=== PATIENT | female | born 2000 | race Hispanic/Latino ===

== ENCOUNTER 2022-02-08 19:03 | Inpatient (IN) | payer OTHER, SELFPAY ==
[2022-02-08] MEDS ORDERED: MAGNES/ALUMIN/SIMET 30ML UCUP ONE (20:10)
[2022-02-08] MEDS ORDERED: MORPHINE 4 MG/ML SYR ONE (20:10)
[2022-02-08] MEDS ORDERED: FAMOTIDINE 20 MG/2 ML VIAL IV ONE (20:11)
[2022-02-08] MEDS ORDERED: NA CHLORIDE 0.9% 1,000 ML ONE (20:11)
[2022-02-08] MEDS ORDERED: LIDOCAINE VISCOUS 2% SOLN 15 ML UDC ONE (20:11)
[2022-02-08] MEDS ORDERED: ONDANSETRON 4 MG/2 ML VIAL ONE (20:11)
--- NOTE | 2022-02-08 20:26 | RAD REPORT ---
EXAM DESCRIPTION: US - Abdomen Exam Limited - 02/08/2022 8:09 pm CLINICAL HISTORY: ABD PAIN COMPARISON: <Comparisons> FINDINGS: Cholelithiasis is present. There is a stone impacted at the gallbladder neck. The common b ile duct measures 2 millimeters. The gallbladder wall is not thickened. No pericholecystic inflammato ry changes are identified. A positive sonographic Cantrell sign is present. IMPRESSION: Cholelithiasis with stone impacted at the gallbladder neck. A positive sonographic Ki y's sign was elicited. Findings are concerning for early or mild acute cholecystitis.
[2022-02-08 20:43] LABS: Absolute Lymphocytes (CBC) 2.2 K/uL (0.7-4.9); Hematocrit 36.4 % (36.0-45.0); MPV 8.4 fL (7.6-11.3); RBC Red Blood Cell Count 4.31 M/uL (3.86-4.86)
[2022-02-08 20:58] LABS: Albumin 3.7 g/dL (3.4-5.0); Bilirubin Total 0.3 mg/dL (0.2-1.0); Potassium 3.6 mmol/L (3.5-5.1); Protein, Total 8.2 g/dL (6.4-8.2)
[2022-02-08 21:00] LABS: Urine Blood 2+ (Negative); Urine Glucose Negative (Negative); Urine Protein 1+ (Negative); Urine Specific Gravity 1.025 (1.005-1.030)
[2022-02-08] MEDS ORDERED: PIPERACIL/TAZO 3.375 GM VIAL IV ONE (21:11)
[2022-02-08] MEDS ORDERED: NA CHLORIDE 0.9% 100 ML IV ONE (21:11)
[2022-02-08 21:15] LABS: Urine Bacteria 20-50 /HPF (<20); Urine RBC <5 /HPF (NONE SEEN)
[2022-02-08 21:58] LABS: Protime INR 1.07
[2022-02-08 22:10] LABS: Urine Specific Gravity/Preg 1.025 (1.005-1.030)
--- NOTE | 2022-02-08 22:11 | RAD REPORT ---
EXAM DESCRIPTION: CTAbdomen Pelvis W Contrast - 02/08/2022 10:04 pm CLINICAL HISTORY: abdominal pain COMPARISON: Abdomen Exam Limited dated 02/08/2022 TECHNIQUE: CT of the abdomen and pelvis was performed. All CT scans are performed using dose optimization technique as appropriate and may include automated exposure control or mA/KV adjustment according to patient size. FINDINGS: Lower chest: No acute abnormality. Liver: No acute abnormality or suspicious lesions. Biliary: Cholelithiasis. No pericholecystic inflammatory changes. No biliary ductal dilatation. Stomach: No significant focal abnormality. Duodenum: No significant focal abnormality. Pancreas: No significant abnormality. Spleen: No significant abnormality. Adrenal: No suspicious lesions. Kidney/ureter: No hydronephrosis. No renal calculi. Retroperitoneum: No retroperitoneal adenopathy. Vascular: No aneurysm. Bowel: No significant focal abnormality. Normal appendix. Peritoneum: No ascites or free air. Bladder: Grossly unremarkable. Reproductive: No adnexal masses. Bones: No acute fracture. Other: n/a IMPRESSION: Cholelithiasis but no CT evidence of acute cholecystitis. Normal appendix.
--- NOTE | 2022-02-08 22:30 | ER ---
Nurse's Notes [facility] Name: Leighann Wooten Age: 21 yrs Sex: Female : 2000 Arrival Date: 02/08/2022 Time: 19:06 Bed 8 Private MD: Diagnosis: Other cholelithiasis without obstruction;Severe sepsis without septic shock;Upper abdominal pain, unspecified Presentation: 02/08 19:07 Chief complaint: EMS states: Toned out for sudden RUQ abdominal pain, radiates to jl7 epigastric area, last meal 3 hours ago, LMP 4 days ago. Coronavirus screen: At this time, the client does not indicate any symptoms associated with coronavirus-19. Ebola Screen: No symptoms or risks identified at this time. Initial Sepsis Screen: Does the patient meet any 2 criteria? No. Patient's initial sepsis screen is negative. Does the patient have a suspected source of infection? No. Patient's initial sepsis screen is negative. Risk Assessment: Do you want to hurt yourself or someone else? Patient reports no desire to harm self or others. Onset of symptoms was February 08, 2022. Care prior to arrival: Medication(s) given: 200 mcg Fentanyl IVP IV initiated. 20 GA, in the left antecubital area. 19:07 Method Of Arrival: Ambulatory [facility] 19:07 Acuity: DANISH 3 jl7 Triage Assessment: 19:11 General: Appears in no apparent distress. uncomfortable, Behavior is calm, cooperative, jl7 appropriate for age. Pain: Complains of pain in right upper quadrant Pain radiates to epigastric area. [employer]ANE RE[employer]: 19:11 LMP 02/04/2022 jl7 Historical: - Allergies: 19:11 No Known Allergies; jl7 - Home Meds: 19:11 None [Active]; jl7 - PMHx: 19:11 None; jl7 - PSHx: 19:11 None; jl7 - Immunization history:: Adult Immunizations unknown. - Social history:: Smoking status: Patient denies any tobacco usage or history of. Screenin/15 00:40 Abuse screen: Denies threats or abuse. Nutritional screening: No deficits noted. ll3 Tuberculosis screening: No symptoms or risk factors identified. Fall Risk No fall in past 12 months (0 pts). No secondary diagnosis (0 pts). IV access (20 points). Ambulatory Aid- None/Bed Rest/Nurse Assist (0 pts). Gait- Normal/Bed Rest/Wheelchair (0 pts) Mental Status- Oriented to own ability (0 pts). Assessment: 02/08 19:10 General: See triage assessment. ll3 21:14 Reassessment: Patient and/or family updated on plan of care and expected duration. Pain ll3 level reassessed. Patient is alert, oriented x 3, equal unlabored respirations, skin warm/dry/pink. States pain meds helped and pain is improved 2/10. 23:34 Reassessment: Patient and/or family updated on plan of care and expected duration. Pain ll3 level reassessed. Patient is alert, oriented x 3, equal unlabored respirations, skin warm/dry/pink. Patient states symptoms have improved. 02/09 00:41 Reassessment: No changes from previously documented assessment. Patient and/or family ll3 updated on plan of care and expected duration. Pain level reassessed. Patient is alert, oriented x 3, equal unlabored respirations, skin warm/dry/pink. Vital Signs: 02/08 19:07 BP 130 / 104; Pulse 113; Resp 15; Temp 98.6; Pulse Ox 100% ; Pain 10/10; jl7 20:46 BP 116 / 75; Pulse 102; Resp 18; Pulse Ox 99% on R/A; ll3 23:34 BP 101 / 58; Pulse 69; Resp 20; Pulse Ox 97% on R/A; Weight 99.79 kg (R); ll3 02/09 00:41 BP 105 / 80; Pulse 72; Resp 18; Pulse Ox 100% on R/A; ll3 ED Course: 02/08 19:06 Patient arrived in ED. ms3 19:06 Maintain EMS IV. Dressing intact. Good blood return noted. Site clean \T\ dry. Gauge \T\ ll 3 site: 20. 19:09 Triage completed. jl7 19:11 Arm band placed on right wrist. jl7 19:21 Florentin Harkins DO is Attending Physician. ms3 20:11 Abdomen Limited US In Process Unspecified. EDMS 21:12 Ralph Oleary, JOSHUA is Primary Nurse. ll3 22:07 CT Abd/Pelvis - IV Contrast Only In Process Unspecified. EDMS 22:27 Don Solorio MD is Hospitalizing Provider. ms3 02/09 00:40 Patient has correct armband on for positive identification. Bed in low position. Call ll3 light in reach. Side rails up X 1. 00:40 No provider procedures requiring assistance completed. Patient admitted, IV remains in ll3 place. intact, No redness/swelling at site. Administered Medications: 02/08 20:30 Drug: Zofran (Ondansetron) 4 mg Route: IVP; Site: left antecubital; ll3 21:37 Follow up: Response: No adverse reaction; Marked relief of symptoms ll3 20:30 Drug: Famotidine 20 mg Route: IVP; Site: left antecubital; ll3 21:38 Follow up: Response: No adverse reaction ll3 20:32 Drug: morphine 4 mg Route: IVP; Site: left antecubital; ll3 21:38 Follow up: Response: No adverse reaction; Marked relief of symptoms ll3 20:33 Drug: NS 0.9% 1000 ml Route: IV; Rate: 1 bolus; Site: left antecubital; ll3 22:13 Follow up: Response: No adverse reaction; IV Status: Completed infusion; IV Intake: ll3 1000ml 20:33 Drug: GI Cocktail without - (Maalox Suspension 30 ml, Lidocaine Liquid 2 % 15 ll3 ml) Route: PO; 21:38 Follow up: Response: No adverse reaction; Marked relief of symptoms ll3 22:13 Drug: Zosyn (piperacillin-tazobactam) 3.375 grams Route: IVPB; Infused Over: 60 mins; ll3 Site: left antecubital; 23:38 Follow up: Response: No adverse reaction; IV Status: Completed infusion; IV Intake: ll3 100ml Medication: 02/09 00:41 VIS not applicable for this client. ll3 Intake: 02/08 22:13 IV: 1000ml; Total: 1000ml. ll3 23:38 IV: 100ml; Total: 1100ml. ll3 Outcome: 22:29 Decision to Hospitalize by Provider. ms3 02/09 00:40 Admitted to ER Hold. Please see [facility] for further documentation. ll3 Condition: stable Instructed on the need for admit, Demonstrated understanding of instructions. 16:40 Admitted to Med/surg accompanied by tech, via wheelchair, with chart, Report called to swathi Saldaña RN 16:56 Patient left the ED. swathi Signatures: Dispatcher [employer] Majo Pompa RN RN aa5 Ross Cosby RN RN jl7 Florentin Harkins, DO ms3 Ralph Oleary RN RN ll3
--- NOTE | 2022-02-08 22:30 | EDPHYS ---
Physician Documentation [facility] Name: Leighann Wooten Age: 21 yrs Sex: Female : 2000 Arrival Date: 02/08/2022 Time: 19:06 Bed 8 Private MD: ED Physician Florentin Harkins HPI: 02/08 20:00 This 21 yrs old Female presents to ER via Ambulatory with complaints of abdominal pain. ms3 20:00 The patient presents with abdominal pain in the upper abdomen. Onset: The ms3 symptoms/episode began/occurred acutely, today. The symptoms radiate to epigastric area and abdomen. Associated signs and symptoms: none. The symptoms are described as Pressure. Modifying factors: The symptoms are alleviated by nothing, the symptoms are aggravated by nothing. Severity of pain: At its worst the pain was a 8 / 10. RN OBGYN: 19:11 LMP 02/04/2022 jl7 Historical: - Allergies: 19:11 No Known Allergies; jl7 - Home Meds: 19:11 None [Active]; jl7 - PMHx: 19:11 None; jl7 - PSHx: 19:11 None; jl7 - Immunization history:: Adult Immunizations unknown. - Social history:: Smoking status: Patient denies any tobacco usage or history of. ROS: 20:00 Constitutional: Negative for fever, and chills. Neck: Negative for injury, pain, and ms3 swelling, Cardiovascular: Negative for chest pain, and palpitations. Respiratory: Negative for shortness of breath, cough, wheezing, and pleuritic chest pain, MS/Extremity: Negative for injury and deformity, Skin: Negative for injury, rash, and discoloration. 20:00 Abdomen/GI: Positive for abdominal pain, Negative for nausea, vomiting, and diarrhea. 20:00 All other systems are negative. Exam: 20:00 Constitutional: This is a well developed, well nourished patient who is awake, alert, ms3 and in no acute distress. Head/Face: Normocephalic, atraumatic. Chest/axilla: Normal chest wall appearance and motion. Nontender with no deformity. Cardiovascular: Regular rate and rhythm with a normal S1 and S2. No gallops, murmurs, or rubs. Normal PMI, no JVD. No pulse deficits. Respiratory: Lungs have equal breath sounds bilaterally, clear to auscultation and percussion. No rales, rhonchi or wheezes noted. No increased work of breathing, no retractions or nasal flaring. MS/ Extremity: Pulses equal, no cyanosis. Neurovascular intact. Full, normal range of motion. Psych: Awake, alert, with orientation to person, place and time. Behavior, mood, and affect are within normal limits. 20:00 Abdomen/GI: Inspection: abdomen appears normal, Bowel sounds: normal, Palpation: moderate abdominal tenderness, in the right upper quadrant and left upper quadrant. 21:27 ECG was reviewed by the Attending Physician. ms3 Vital Signs: 19:07 BP 130 / 104; Pulse 113; Resp 15; Temp 98.6; Pulse Ox 100% ; Pain 10/10; jl7 20:46 BP 116 / 75; Pulse 102; Resp 18; Pulse Ox 99% on R/A; ll3 23:34 BP 101 / 58; Pulse 69; Resp 20; Pulse Ox 97% on R/A; Weight 99.79 kg (R); ll3 02/09 00:41 BP 105 / 80; Pulse 72; Resp 18; Pulse Ox 100% on R/A; ll3 MDM: 02/08 19:37 Patient medically screened. ms3 20:00 Differential diagnosis: cholecystitis, Cholelithiasis, pancreatitis. ms3 22:29 ED course: Discussed patient with Dr Marie and he would like Zosyn 3.375 gm IV q 6 ms3 hours. Will get MRCP on Thursday. Admit to medicine. Discussed case with MARA Romero and he accepts admission to Dr Solorio. Patient's pain has improved since arrival to the ED. Patient remains with RUQ TTP.. 22:31 ED course: Patient meets severe sepsis criteria at this time. Patient with early ms3 cholecystitis. B HR>90, WBC >12k; C. LA >2. Sepsis bundle ordered- LA, and blood cultures. Zosyn given.. 23:26 Data reviewed: vital signs, nurses notes, lab test result(s), radiologic studies, CT ms3 scan, ultrasound. Data interpreted: Pulse oximetry: on room air is 99 %. Interpretation: normal. Counseling: I had a detailed discussion with the patient and/or guardian regarding: the historical points, exam findings, and any diagnostic results supporting the discharge/admit diagnosis, lab results, radiology results, the need for further work-up and treatment in the hospital. 02/08 19:36 Order name: CBC with Diff; Complete Time: 20:50 ms3 02/08 19:36 Order name: CMP; Complete Time: 21:21 ms3 02/08 19:36 Order name: Lipase; Complete Time: 21:21 ms3 02/08 19:36 Order name: Urine Microscopic Only; Complete Time: 21:21 ms3 02/08 20:51 Order name: Blood Culture Adult (2) ms3 02/08 20:51 Order name: Lactate; Complete Time: 22:16 ms3 02/08 20:51 Order name: Protime (+inr); Complete Time: 22:16 ms3 02/08 20:51 Order name: Ptt, Activated; Complete Time: 22:16 ms3 02/08 21:00 Order name: Urine Dipstick-Ancillary; Complete Time: 21:21 EDMS 02/08 21:07 Order name: Urine --Ancillary (enter results); Complete Time: 22:16 ds4 02/08 21:19 Order name: Urine Culture EDMS 02/08 21:39 Order name: Glucose, Ancillary Testing; Complete Time: 22:16 EDMS 02/08 22:43 Order name: COVID-19 SARS RT PCR (Document "Date of Onset" if Symptomatic); Complete ll3 Time: 01:39 02/08 23:41 Order name: Lactate ll3 02/08 19:36 Order name: Abdomen Limited US; Complete Time: 20:50 ms3 02/08 19:36 Order name: CT Abd/Pelvis - IV Contrast Only; Complete Time: 22:16 ms3 02/08 19:36 Order name: IV Saline Lock; Complete Time: 20:34 ms3 02/08 19:36 Order name: Labs collected and sent; Complete Time: 20:33 ms3 02/08 19:36 Order name: Urine Dipstick-Ancillary (obtain specimen); Complete Time: 21:04 ms3 02/08 19:36 Order name: Urine Test (obtain specimen); Complete Time: 21:04 ms3 02/08 20:51 Order name: Accucheck; Complete Time: 21:37 ms3 02/09 00:57 Order name: Lactate Sepsis 2 HR Follow-up; Complete Time: 01:39 EDMS 02/09 05:15 Order name: Comprehensive Metabolic Panel EDMS 02/09 05:20 Order name: CBC with Automated Diff EDMS 02/08 20:51 Order name: Cardiac monitoring; Complete Time: 21:37 ms3 02/08 20:51 Order name: EKG - Nurse/Tech; Complete Time: 21:37 ms3 02/08 20:51 Order name: IV Saline Lock - Large Bore; Complete Time: 20:53 ms3 02/08 20:51 Order name: O2 Per Protocol; Complete Time: 20:53 ms3 02/08 20:51 Order name: O2 Sat Monitoring; Complete Time: 20:53 ms3 EC:27 Rate is 75 beats/min. Rhythm is regular. QRS [place] is Normal. [place] interval is normal. QRS ms3 interval is normal. Clinical impression: Normal ECG. Interpreted by me. Administered Medications: 20:30 Drug: Zofran (Ondansetron) 4 mg Route: IVP; Site: left antecubital; ll3 21:37 Follow up: Response: No adverse reaction; Marked relief of symptoms ll3 20:30 Drug: Famotidine 20 mg Route: IVP; Site: left antecubital; ll3 21:38 Follow up: Response: No adverse reaction ll3 20:32 Drug: morphine 4 mg Route: IVP; Site: left antecubital; ll3 21:38 Follow up: Response: No adverse reaction; Marked relief of symptoms ll3 20:33 Drug: NS 0.9% 1000 ml Route: IV; Rate: 1 bolus; Site: left antecubital; ll3 22:13 Follow up: Response: No adverse reaction; IV Status: Completed infusion; IV Intake: ll3 1000ml 20:33 Drug: GI Cocktail without - (Maalox Suspension 30 ml, Lidocaine Liquid 2 % 15 ll3 ml) Route: PO; 21:38 Follow up: Response: No adverse reaction; Marked relief of symptoms ll3 22:13 Drug: Zosyn (piperacillin-tazobactam) 3.375 grams Route: IVPB; Infused Over: 60 mins; ll3 Site: left antecubital; 23:38 Follow up: Response: No adverse reaction; IV Status: Completed infusion; IV Intake: ll3 100ml Disposition Summary: 02/08/22 22:29 Hospitalization Ordered Hospitalization Status: Inpatient Admission ms3 Provider: Don Solorio ms3 Condition: Stable ms3 Problem: new ms3 Symptoms: have improved ms3 Bed/Room Type: Standard ms3 Location: Telemetry/MedSurg (Inpatient)(02/09/22 15:37) iw Room Assignment: 217(02/09/22 15:37) iw Diagnosis - Other cholelithiasis without obstruction ms3 - Severe sepsis without septic shock ms3 - Upper abdominal pain, unspecified ms3 Forms: - Medication Reconciliation Form ms3 - SBAR form ms3 Signatures: Dispatcher [employer] EDChristie Rice RN RN iw Neha Obando RN RN cg Ross Cosby RN RN lela7 Florentin Harkins DO DO ms3 Ralph Oleary RN RN ll3 Corrections: (The following items were deleted from the chart) 02/09 00:09 02/08 22:29 Telemetry/MedSurg (Inpatient) ms3 cg 02/09 00:09 02/08 22:29 ms3 cg 02/09 15:37 00:09 [facility] ER HOLD cg iw 15:37 00:09 ERHOLD- cg iw
--- NOTE | 2022-02-09 00:52 | P.HP ---
Certification for Inpatient Patient admitted to: Inpatient With expected LOS: >2 Midnights Patient will require the following post-hospital care: None Practitioner: I am a practitioner with admitting privileges, knowledge of patient current condition, hospital course, and medical plan of care. Services: Services provided to patient in accordance with Admission requirements found in Title 42 Section 412.3 of the Code of Federal Regulations Patient History Date of Service: 02/08/22 Reason for admission: Sepsis, cholecystitis History of Present Illness: 21-year-old female with no significant past medical history presents emergency department for right upper quadrant abdominal pain. Patient was evaluated in the emergency department her labs were significant for leukocytosis mild elevations in AST/ALT ultrasound was performed which demonstrated cholelithiasis with a stone impacted at the gallbladder neck CBD measures 2 mm positive sonographic Cantrell sign CT abdomen pelvis with IV contrast shows cholelithiasis General surgery was consulted who recommends admission for sepsis, cholecystitis, antibiotics and MRCP on Thursday. - Past Medical/Surgical History -: None -: none Psychosocial/ Personal History: Patient lives at home with family - Family History Family History: Reviewed- Non-Contributory - Social History Smoking Status: Current some day smoker Counseled patient to stop smoking for: less than 10 minutes Alcohol use: No CD- Drugs: No Caffeine use: Yes Place of Residence: Home Review of Systems 10-point ROS is otherwise unremarkable Gastrointestinal: Nausea, Abdominal Pain Physical Examination - Physical Exam General: Alert, In no apparent distress, Oriented x3 HEENT: Atraumatic, PERRLA, Mucous membr. moist/pink, EOMI, Sclerae nonicteric Neck: Supple, 2+ carotid pulse no bruit, No LAD, Without JVD or thyroid abnormality Respiratory: Clear to auscultation bilaterally, Normal air movement Cardiovascular: Regular rate/rhythm, Normal S1 S2 Capillary refill: <2 Seconds Gastrointestinal: Normal bowel sounds, Tenderness (Epigastric/right upper quadrant) Musculoskeletal: No tenderness Integumentary: No rashes Neurological: Normal speech, Normal strength at 5/5 x4 extr, Normal tone, Normal affect Lymphatics: No axilla or inguinal lymphadenopathy - Studies Laboratory Data (last 24 hrs) 02/08/22 21:17: PT 11.8, INR 1.07, APTT 36.7 02/08/22 20:18: Sodium 142, Potassium 3.6, BUN 10, Creatinine 0.80, Glucose 93, Total Bilirubin 0.3, AST 79 H, ALT 88 H, Alkaline Phosphatase 102, Lipase 64 L 02/08/22 20:18: WBC 14.0 H, Hgb 12.0, Hct 36.4, Plt Count 371 Assessment and Plan - Plan Assessment: Sepsis secondary to acute cholecystitis Plan: Sepsis secondary to acute cholecystitis: Continue Zosyn, n.p.o., IV fluids, general surgery consult in place. Diet per surgery, MRCP ordered. DVT PPX: Lovenox Code status: Full Discharge Plan: Home Plan to discharge in: 72 Hours - Advance Directives Does patient have a Living Will: No Does patient have a Durable POA for Healthcare: No - Code Status/Comfort Care Code Status Assessed: Yes (Full code) Critical Care: No Time Spent Managing Pts Care (In Minutes): 55
[2022-02-09] MEDS ORDERED: HYDROMORPHONE HCL 0.5 MG/0.5 ML INJ ONE ×2 (01:12→08:37)
[2022-02-09] MEDS ORDERED: NA CHLORIDE 0.9% 1,000 ML ONE ×3 (01:12→16:41)
[2022-02-09] MEDS ORDERED: ONDANSETRON 4 MG/2 ML VIAL ONE ×2 (01:12→08:37)
[2022-02-09] MEDS: NA CHLORIDE 0.9% 1,000 ML IV SCH ×3 (01:25→21:00)
[2022-02-09] MEDS: HYDROMORPHONE HCL 0.5 MG/0.5 ML INJ IV PRN ×3 (01:25→21:00)
[2022-02-09] MEDS: ONDANSETRON 4 MG/2 ML VIAL IV PRN ×3 (01:26→21:12)
[2022-02-09 02:24] VITALS: BMI 34.4
[2022-02-09 05:01] LABS: Hematocrit 33.5 % (36.0-45.0); Lymphocytes % 35.2 % (15.3-44.8); MPV 8.6 fL (7.6-11.3); RBC Red Blood Cell Count 3.89 M/uL (3.86-4.86)
[2022-02-09 05:13] LABS: Albumin 3.2 g/dL (3.4-5.0); Bilirubin Total 0.3 mg/dL (0.2-1.0); Potassium 3.9 mmol/L (3.5-5.1); Protein, Total 7.2 g/dL (6.4-8.2)
[2022-02-09] MEDS: PIPER TAZO 3.375 GM in NA CHLORIDE 0.9% 100 ML IV SCH ×3 (07:35→21:00)
[2022-02-09] MEDS ORDERED: NA CHLORIDE 0.9% 100 ML IV ONE ×2 (07:36→16:41)
[2022-02-09] MEDS ORDERED: PIPERACIL/TAZO 3.375 GM VIAL IV ONE ×2 (07:36→16:41)
[2022-02-09] MEDS ORDERED: ENOXAPARIN 40 MG/0.4 ML SQ ONE (08:38)
[2022-02-09] MEDS: ENOXAPARIN 40 MG/0.4 ML SQ SCH (09:00)
[2022-02-09] MEDS: ACETAMINOPHEN 500 MG TAB PO PRN ×2 (10:40→21:00)
[2022-02-09] MEDS ORDERED: ACETAMINOPHEN 500 MG TAB ONE (10:43)
--- NOTE | 2022-02-09 12:20 | CON ---
Date of Consultation: 02/09/2022 Diagnoses: Acute cholecystitis, symptomatic cholelithiasis, increased liver enzymes. History Of Present Illness: This is the case of a 21-year-old patient, came this morning with acute abdominal pain, epigastric right upper quadrant area associated with nausea and vomiting. She stated that happened after eating some steak tacos. She does not remember having this pain before. Her fa lino has cholecystectomy done in the past. She denies any dysuria, hematuria, hematochezia, melena. Denies any recent traveling out of the country. Denies any family member sick at home. Allergies: NONE. Medical Problems: None. Family History: Noncontributory. Social History: She smokes occasionally. She was counseled the importance of smoking cessation. Sh e does not use alcohol. Review of Systems: As above nausea, vomiting, abdominal pain. No diarrhea. No fever. Ten points otherwise unremarkabl e. Physical Examination: General: The patient is awake, alert. HEENT: Pupils are equal, reactive. Anicteric. Neck: Supple. Chest: Clear. Abdomen: Epigastric right upper quadrant tenderness with Cantrell sign positive. Breasts: Deferred. Pelvic: Deferred. Rectal: Deferred. Extremities: Good capillary refill. Laboratory Data: Blood work shows a WBC count of 8.4, hemoglobin of 11.2, platelets of 331. INR is 1.07. Sodium is 141, chloride is 110. LFTs are mildly elevated with AST of 39, ALT 88, alkaline yodit sphate 102, total bilirubin of 0.3, lipase 64. The patient had ultrasound and CAT scan done, interpr eted by Dr. Wilks as acute cholecystitis and cholelithiasis with a stone impacted in the neck of the ga llbladder. Assessment: This is a 21-year-old patient with acute cholecystitis, symptomatic cholelithiasis, morb id obesity, also with LFTs elevated. The benefits, alternatives, and risks of laparoscopic possible open cholecystectomy were fully explained, which include, but not limited to infection, bleeding, dam age to adjacent structures, anesthesia complication, choledocholithiasis, bile leak, pancreatitis, MT , and even . She also understands this may not relieve any symptoms. She might need more than one surgical intervention. She is booked for the MRCP tomorrow morning. We do not have it available at this moment. TONY/MODL Voice ID: [id number] Report ID: [id number]
--- NOTE | 2022-02-09 13:34 | P.PN ---
Date of Service: 02/09/22 Subjective: Improving, no nausea/vomiting Continues with right upper quadrant abdominal pain, pain medication helping ROS: 10 point ROS as noted above, otherwise negative Physical exam GEN: Alert, oriented, NAD HEENT: Normal conjunctiva, sclera anicteric CV: Regular rate and rhythm, no edema Pulm: Nonlabored respirations on room air ABD: Soft, mild-moderate RUQ tenderness Neuro: Normal speech, normal affect Problem List sepsis secondary to acute cholecystitis, symptomatic cholelithiasis Obese, class 1 SIRS 2/4 on presentation - tachycardia, leukocytosis cholelithiasis with evidence of cholecystitis on imaging elevated LFTs general surgery consulted MRCP ordered, earliest it can be done is tomorrow no GI currently available NPO, IVF continue Zosyn pain medication and antiemetics as needed Code: full Dispo: home, ~2 days Time Spent Managing Pts Care (In Minutes): 35
[2022-02-09] MEDS ORDERED: HYDROMORPHONE HCL 0.5 MG/0.5 ML INJ IV ONE (22:31)
[2022-02-09] MEDS ORDERED: PROMETHAZINE INJ 25 MG/ML AMP IV PRN (22:31)
[2022-02-10] MEDS: PIPER TAZO 3.375 GM in NA CHLORIDE 0.9% 100 ML IV SCH ×3 (05:01→22:42)
[2022-02-10] MEDS: NA CHLORIDE 0.9% 1,000 ML IV SCH ×3 (05:15→23:58)
[2022-02-10 05:43] LABS: Absolute Lymphocytes (CBC) 2.8 K/uL (0.7-4.9); Hematocrit 34.1 % (36.0-45.0); Lymphocytes % 44.2 % (15.3-44.8); MPV 8.3 fL (7.6-11.3); RBC Red Blood Cell Count 3.99 M/uL (3.86-4.86)
[2022-02-10 05:56] LABS: Bilirubin Total 0.5 mg/dL (0.2-1.0); Magnesium 2.2 mg/dL (1.8-2.4); Potassium 3.7 mmol/L (3.5-5.1)
--- NOTE | 2022-02-10 06:25 | P.PN ---
Date of Service: 02/10/22 Subjective: RUQ abd pain without significant improvement. IV pain medication helps ROS: 10 point ROS as noted above, otherwise negative Physical exam GEN: Alert, oriented, NAD HEENT: Normal conjunctiva, sclera anicteric CV: Regular rate and rhythm, no edema Pulm: Nonlabored respirations on room air ABD: Soft, mild-moderate RUQ tenderness Neuro: Normal speech, normal affect Problem List sepsis secondary to acute cholecystitis, symptomatic cholelithiasis; choledocholithiasis Obese, class 1 SIRS 2/4 on presentation - tachycardia, leukocytosis NPO, IVF cholelithiasis with evidence of cholecystitis on imaging elevated LFTs MRCP today with stone in CBD no GI available / emergency response officer for ERCP transfer initiated to [place], accepted to [facility], pending bed continue Zosyn pain medication and antiemetics as needed Code: full Dispo: accepted to [facility], pending bed; for ERCP Time Spent Managing Pts Care (In Minutes): 35
[2022-02-10] MEDS: ENOXAPARIN 40 MG/0.4 ML SQ SCH (08:28)
--- NOTE | 2022-02-10 08:33 | RAD REPORT ---
EXAM DESCRIPTION: MRICholangiogram02/10/2022 8:04 am CLINICAL HISTORY: Abdominal pain COMPARISON: Feb 08 2022 cat scan and ultrasound TECHNIQUE: Magnetic resonance cholangiogram was performed.3D MIP reconstruction performed FINDINGS: Multiple gallstones. Gallbladder wall does not appear thickened The biliary tree is normal caliber. Diminished signal is present within the distal common bile duct. Pancreatic duct is normal caliber IMPRESSION: Cholelithiasis. Diminished signal within the distal common bile duct is suggestive of stone
[2022-02-10] MEDS ORDERED: POTASSIUM CL SA 10 MEQ TAB PO ONE (09:00)
[2022-02-10] MEDS ORDERED: KCL 20 MEQ/100 mL IVPB 20 MEQ/100 ML BAG IV SCH (10:00)
--- NOTE | 2022-02-10 10:06 | EKG ---
Test Date: 2022-02-08 Test Time: 21:27:35 Instructional Support Specialist: LL MEASUREMENT RESULTS: Intervals: Rate: 75 CA: 166 QRSD: 94 QT: 364 QTc: 406 [place]: P: 35 CA: 166 QRS: 14 T: 36 INTERPRETIVE STATEMENTS: Normal sinus rhythm Normal ECG No previous ECG available for comparison Electronically Signed On 02-10-22 10:02:51 CDT by Victor M Leone
[2022-02-10] MEDS ORDERED: FENTANYL CITR 100 MCG/2 ML IV ONE (20:01)
[2022-02-10] MEDS: HYDROMORPHONE HCL 0.5 MG/0.5 ML INJ IV PRN (23:23)
[2022-02-11] MEDS: NA CHLORIDE 0.9% 1,000 ML IV SCH (04:14)
[2022-02-11] MEDS: PIPER TAZO 3.375 GM in NA CHLORIDE 0.9% 100 ML IV SCH (05:08)
[2022-02-11 05:39] LABS: Absolute Lymphocytes (CBC) 2.5 K/uL (0.7-4.9); Hematocrit 33.9 % (36.0-45.0); Lymphocytes % 40.8 % (15.3-44.8); MPV 8.1 fL (7.6-11.3); RBC Red Blood Cell Count 3.98 M/uL (3.86-4.86)
[2022-02-11 05:57] LABS: Bilirubin Total 0.6 mg/dL (0.2-1.0); Potassium 3.4 mmol/L (3.5-5.1); Protein, Total 6.9 g/dL (6.4-8.2)
[2022-02-11] MEDS ORDERED: KCL 20 MEQ/100 mL IVPB 20 MEQ/100 ML BAG IV SCH (08:00)
[2022-02-11] MEDS: ENOXAPARIN 40 MG/0.4 ML SQ SCH (09:00)
[2022-02-11] MEDS ORDERED: POTASSIUM CL SA 10 MEQ TAB PO ONE (09:11)
[2022-02-11 09:17] VITALS: O2SAT 100
[2022-02-11] MEDS: HYDROMORPHONE HCL 0.5 MG/0.5 ML INJ IV PRN (11:04)
--- NOTE | 2022-02-11 12:22 | P.DS ---
Admission Date: 02/08/22 Discharge Date: 02/11/22 Disposition: TRANSFER TO [facility] Discharge Condition: FAIR Reason for Admission: Sepsis, cholecystitis - Problems (1) Acute cholecystitis Current Visit: Yes Status: Acute (2) Choledocholithiasis Current Visit: Yes Status: Acute (3) Acute cystitis without hematuria Current Visit: Yes Status: Acute Brief History of Present Illness: 21-year-old female with no significant past medical history presented to the emergency department for right upper quadrant abdominal pain. Patient was evaluated in the emergency department her labs were significant for leukocytosis mild elevations in AST/ALT. Ultrasound was performed which demonstrated cholelithiasis with a stone impacted at the gallbladder neck, CBD measures 2 mm, positive sonographic Cantrell sign. CT abdomen pelvis with IV contrast showed cholelithiasis. General surgery was consulted who recommended admission for further management. Hospital Course: Diagnosis sepsis secondary to acute cholecystitis, cholelithiasis; choledocholithiasisObese, class 1. Hospital course Patient admitted to the medical floor, diagnosis sepsis, resuscitated with IV fluid and started on aggressive antibiotic therapy. LFTs are elevated Patient kept NPO. MRCP done showed stone in CBD no GI available for ERCP Transfer to [facility]. Patient has been accepted for transfer. Vitals are stable for transfer. Vital Signs/Physical Exam: Temp Pulse Resp BP Pulse Ox 99.0 F 64 16 101/53 L 100 02/11/22 08:00 02/11/22 08:00 02/11/22 11:04 02/11/22 08:00 02/11/22 11:04 General: Alert, In no apparent distress, Oriented x3 HEENT: Mucous membr. moist/pink Neck: JVD not distended Respiratory: Clear to auscultation bilaterally, Normal air movement Cardiovascular: Regular rate/rhythm, Normal S1 S2 Gastrointestinal: Soft and benign, Non-distended Musculoskeletal: No swelling Integumentary: No rashes Neurological: Normal strength at 5/5 x4 extr Laboratory Data at Discharge: WBC 6.1 K/uL (4.3-10.9) 02/11/22 05:24 Hgb 11.4 g/dL (12.0-15.0) L 02/11/22 05:24 Hct 33.9 % (36.0-45.0) L 02/11/22 05:24 Plt Count 279 K/uL (152-406) 02/11/22 05:24 PT 11.8 SECONDS (9.5-12.5) 02/08/22 21:17 INR 1.07 02/08/22 21:17 APTT 36.7 SECONDS (24.3-36.9) 02/08/22 21:17 Sodium 141 mmol/L (136-145) 02/11/22 05:24 Potassium 3.4 mmol/L (3.5-5.1) L 02/11/22 05:24 BUN 6 mg/dL (7-18) L 02/11/22 05:24 Creatinine 0.54 mg/dL (0.55-1.3) L 02/11/22 05:24 Glucose 74 mg/dL (74-106) 02/11/22 05:24 Magnesium 2.2 mg/dL (1.8-2.4) 02/10/22 05:17 Total Bilirubin 0.6 mg/dL (0.2-1.0) 02/11/22 05:24 AST 105 U/L (15-37) H 02/11/22 05:24 ALT 153 U/L (12-78) H 02/11/22 05:24 Alkaline Phosphatase 110 U/L (45-117) 02/11/22 05:24 Lipase 64 U/L (73-393) L 02/08/22 20:18 Home Medications: Hydromorphone [Dilaudid] 0.5 mg IV Q4H PRN syr 02/11/22 Ondansetron [Zofran*] 4 mg IV Q6HP PRN vial 02/11/22 Promethazine Inj [Phenergan -Inj*] 12.5 mg IV Q6H PRN amp 02/11/22 Followup: NONE,NONE [Primary Care Provider] - Time spent managing pt's care (in minutes): 36
[2022-02-11 12:47] VITALS: BP 106/55; TEMP 98.8
== END 2022-02-11 13:15 | disposition short-term general hospital (02) | DRG 872 ==
LOC: ER 19:03 → ERHOLD 23:01 → 2ND 02-09 16:40
PROVIDERS: ADMIT Hospitalist; ATTEND Hospitalist
DX: A41.9 Sepsis, unspecified organism (principal); K80.42 Calculus of bile duct with acute cholecystitis without obstruction; N30.00 Acute cystitis without hematuria; Z20.822 Contact with and (suspected) exposure to COVID-19; F17.210 Nicotine dependence, cigarettes, uncomplicated
CPT/HCPCS: 36415; 74177; 74181; 76705; 80053; 81003; 81015; 81025; 82947; 83605; 83690; 83735; 85025; 85610; 85730; 87040; 87086; 87088; 87205; 93005; 96361; 96365; 96375; 99285; J1170; J1650; J2405; J2543; J2550; J3010; J3480; J3490; J7030; Q9967; U0003